=== PATIENT | male | born 1955 | race Asian ===

== ENCOUNTER 2019-08-15 16:31 | Outpatient (CLI) | payer OTHER | END 2019-08-15 16:34 | disposition short-term general hospital (02) | LOC: AMB 16:31 | DX: R55 Syncope and collapse (principal) | CPT/HCPCS: A0425; A0433 ==

== ENCOUNTER 2019-08-15 16:37 | Emergency (ER) | payer OTHER ==
[~2019-08-15] VITALS: Ht 177.8 cm; Wt 113.4 kg
[2019-08-15 17:38] LABS: PLATELET COUNT 255 K/uL (142-355)
[2019-08-15 18:01] LABS: POTASSIUM 5.9 mmol/L (3.6-5.2)
== END 2019-08-15 20:05 | disposition short-term general hospital (02) ==
LOC: ED 16:37
PROVIDERS: Emergency Medicine Emergency Medical Services
PROC: 0T9B70Z Drainage of Bladder with Drainage Device, Via Natural or Artificial Opening (ICD-10-PCS; principal; 2019-08-15)
DX: I46.9 Cardiac arrest, cause unspecified (principal); R06.09 Other forms of dyspnea
CPT/HCPCS: 31500; 36415; 36600; 43754; 80053; 82550; 82805; 82962; 83880; 84484; 85027; 85610; 92950; 93005; 94003; 96365; 96366; 96368; 96375; 96376; 99291; 99292; J0171; J3490